=== PATIENT | female | born 1935 ===

== ENCOUNTER 2020-11-20 17:13 | Emergency (ER) | payer OTHER ==
[~2020-11-20] VITALS: Ht 149.9 cm; Wt 53.5 kg
[2020-11-20] MEDS ORDERED: ATIVAN1 M1 (17:21)
[2020-11-20] MEDS ORDERED: NEURONTIN300 MG (17:21)
[2020-11-20] MEDS ORDERED: INDERAL LA80 MG (17:21)
[2020-11-20] MEDS ORDERED: NORVASC2.5 MG (17:36)
== END 2020-11-20 18:00 | disposition home or self-care (01) ==
LOC: ER 17:13
DX: S01.521A Laceration with foreign body of lip, initial encounter (principal); W18.31XA Fall on same level due to stepping on an object, initial encounter; Y93.01 Activity, walking, marching and hiking; Y92.89 Other specified places as the place of occurrence of the external cause; Y99.8 Other external cause status

== ENCOUNTER 2020-11-26 | Outpatient (CLI) | payer OTHER ==
[~2020-11-26] MED LIST: ATIVAN1 M1; INDERAL LA80 MG; NEURONTIN300 MG; NORVASC2.5 MG
== END 2020-11-26 00:01 | disposition home or self-care (01) ==
LOC: PPH VACUNA
PROVIDERS: ATTEND Emergency Medicine Pediatric Emergency Medicine
DX: Z23 Encounter for immunization (principal)